=== PATIENT | female | born 1975 | race Caucasian/White ===

== ENCOUNTER → 2020-12-04 11:55 | Outpatient (BNVA) | payer OTHER, SELFPAY | PROVIDERS: Visit Provider Obstetrics & Gynecology | DX: Z12.4 Encounter for screening for malignant neoplasm of cervix (principal) | CPT/HCPCS: 88175 ==

== ENCOUNTER → 2024-09-24 16:06 | Outpatient (BNVA) | payer BC, SELFPAY | PROVIDERS: Visit Provider Nurse Practitioner Women's Health | DX: E04.9 Nontoxic goiter, unspecified (principal); N91.5 Oligomenorrhea, unspecified; R53.83 Other fatigue; R41.89 Other symptoms and signs involving cognitive functions and awareness; R68.82 Decreased libido; N93.9 Abnormal uterine and vaginal bleeding, unspecified | CPT/HCPCS: 80053; 82306; 82607; 82728; 82746; 83036; 83525; 83540; 84270; 84402; 84403; 84439; 84443; 84481; 85025; 86376 ==

== ENCOUNTER → 2024-10-11 13:12 | Outpatient (BNVA) | payer BC, SELFPAY | PROVIDERS: Visit Provider Nurse Practitioner Women's Health | DX: N92.6 Irregular menstruation, unspecified (principal); N85.8 Other specified noninflammatory disorders of uterus; R93.89 Abnormal findings on diagnostic imaging of other specified body structures | CPT/HCPCS: 76830 ==